=== PATIENT | female | born 1955 | race Caucasian/White ===

== ENCOUNTER 2018-08-28 14:31 | Emergency (ER) | payer OTHER ==
--- NOTE | 2018-08-28 15:27 | ER ---
Nurse's Notes [facility] Name: Tiny Warner Age: 63 yrs Sex: Female : 1955 Arrival Date: 08/28/2018 Time: 14:35 Bed 19 Private MD: Raf Bazan H Diagnosis: Local infection of the skin and subcutaneous tissue, unspecified-back of neck;Edema of left lower eyelid Presentation: 08/28 14:39 Presenting complaint: Swelling and redness under left eye x 2 days. Transition of care: hb patient was not received from another setting of care. Onset of symptoms was August 27, 2018. Risk Assessment: Do you want to hurt yourself or someone else? Patient reports no desire to harm self or others. Initial Sepsis Screen: Does the patient meet any 2 criteria? No. Patient's initial sepsis screen is negative. Does the patient have a suspected source of infection? No. Patient's initial sepsis screen is negative. Care prior to arrival: None. 14:39 Method Of Arrival: Ambulatory 14:39 Acuity: TARI 4 hb Historical: - Allergies: 14:43 PENICILLINS; hb - Home Meds: 14:43 Synthroid 50 mcg Oral tab 1 tab once daily [Active]; Doxycycline Oral [Active]; hb - PSHx: 14:43 liposuction; hb - Immunization history:: Adult Immunizations up to date. - Social history:: Smoking status: Patient/guardian denies using tobacco. - Ebola Screening: : No symptoms or risks identified at this time. Screenin:03 Abuse screen: Denies threats or abuse. Denies injuries from another. Nutritional aj1 screening: No deficits noted. Tuberculosis screening: No symptoms or risk factors identified. Fall Risk None identified. Assessment: 16:03 General: Appears in no apparent distress. uncomfortable, Behavior is calm, cooperative, aj1 appropriate for age. Pain: Complains of pain in left eye. Neuro: Level of Consciousness is awake, alert, obeys commands, Oriented to person, place, time, situation. Cardiovascular: Patient's skin is warm and dry. Respiratory: Airway is patent Respiratory effort is even, unlabored, Respiratory pattern is regular, symmetrical. GI: No signs and/or symptoms were reported involving the gastrointestinal system. : No signs and/or symptoms were reported regarding the genitourinary system. EENT: redness and swelling noted under left eye. Derm: No signs and/or symptoms reported regarding the dermatologic system. Skin is pink, warm \T\ dry. normal. Musculoskeletal: No signs and/or symptoms reported regarding the musculoskeletal system. Circulation, motion, and sensation intact. Vital Signs: 14:41 BP 131 / 65; Pulse 68; Resp 16; Temp 98.3; Pulse Ox 100% on R/A; Weight 51.26 kg; hb Height 5 ft. 1 in. (154.94 cm); Pain 5/10; 14:41 Body Mass Index 21.35 (51.26 kg, 154.94 cm) hb ED Course: 14:35 Patient arrived in ED. dl4 14:36 Raf Bazan DO is Private Physician. dl4 14:41 Triage completed. hb 14:41 Arm band placed on. hb 14:44 [facility] Selby [facility]C [facility]. kb 14:44 Olvin Addison MD is Attending Physician. kb 15:27 Nevin Osei, ALLEGRA is Primary Nurse. aj1 16:03 Patient has correct armband on for positive identification. Bed in low position. Call aj1 light in reach. Side rails up X 1. 16:03 No provider procedures requiring assistance completed. Patient did not have IV access aj1 during this emergency room visit. Administered Medications: 16:02 Drug: predniSONE 20 mg Route: PO; aj1 16:06 Follow up: Response: No adverse reaction aj1 16:02 Drug: Benadryl 25 mg Route: PO; aj1 16:07 Follow up: Response: No adverse reaction aj1 16:02 Drug: Bactrim (160 mg-800 mg (DS) 1 tablet Route: PO; aj1 16:07 Follow up: Response: No adverse reaction aj1 16:03 Drug: Pepcid 20 mg Route: PO; aj1 16:06 Follow up: Response: No adverse reaction aj1 Outcome: 15:27 Discharge ordered by . kb 16:03 Discharged to home ambulatory, with family. aj1 16:03 Condition: good 16:03 Discharge instructions given to patient, family, Instructed on discharge instructions, follow up and referral plans. medication usage, Demonstrated understanding of instructions, follow-up care, medications, Prescriptions given X 3. 16:07 Patient left the ED. aj1 Signatures: Paty Selby, AMENAC JEANNETTE-Nevin Villavicencio RN RN aj1 Sally Rangel, RN RN Pritesh Lindsey dl4
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
[2018-08-28] MEDS ORDERED: predniSONE 20 MG TAB ONE (15:59)
[2018-08-28] MEDS ORDERED: SMZ./TMP. 800/160 MG TABLET ONE (15:59)
[2018-08-28] MEDS ORDERED: DIPHENHYDRAMINE 25 MG TAB/CAP ONE (15:59)
[2018-08-28] MEDS ORDERED: FAMOTIDINE 20 MG TAB ONE (16:00)
--- OUTSIDE RECORDS SUMMARY | 2018-08-28 16:22 | XMS REPORT ---
:1955 [facility] Address [address] [place] [address] Dr. Anguiano [address] [place] [id number] Care Team Providers Name Role Phone Unavailable Unavailable Unavailable Payers Payer Name Policy Type Policy Number Effective Date Expiration Date Problems This patient has no known problems. Allergies, Adverse Reactions, Alerts Allergy Name Allergy Status Severity Reaction(s) Onset Inactive Treating Comments Type Date Date Clinician Penicillins DA Active U 2014-06 00:00:0 0 Medications This patient has no known medications.
[2018-08-28] MEDS ORDERED: CYCLOBENZAPRINE 10 MG TAB ONE (17:59)
[2018-08-28] MEDS ORDERED: CODEINE 30MG/APAP 300MG TAB ONE (17:59)
== END 2018-08-28 16:07 | disposition home or self-care (01) ==
LOC: ER 14:31
DX: H02.845 Edema of left lower eyelid (principal); R22.1 Localized swelling, mass and lump, neck; L08.9 Local infection of the skin and subcutaneous tissue, unspecified; Z88.0 Allergy status to penicillin
CPT/HCPCS: 99283; J7512